=== PATIENT | male | born 1945 | race Caucasian/White ===

== ENCOUNTER 2018-11-02 16:49 | Inpatient (IN) | payer OTHER ==
[~2018-11-02] VITALS: Ht 172.7 cm; Wt 57.2 kg
--- NOTE | 2018-11-02 17:03 | NUR ---
EKG IN PROGRESS. LEFT SIDED WEAKNESS.
--- NOTE | 2018-11-02 17:30 | NUR ---
RECEIVED PATIENT FROM TRIAGE, PATIENT WHEELED TO ROOM 5, TWIN BROTHER AT BEDSIDE WHO STATES PATIENT HAS NOT BEEN EATING OR VOIDING X 2 DAYS, NOT ABLE TO TALK OR "DO HIS NON-STOP TALKING ABOUT HIS TIME AT [facility], SEEMS WEAK AND HE WAS SEEN BY PMD 3 WEEKS AGO AND WAS DX'D WITH UTI. HE WAS GIVEN ABX, PLUS CIPRO." PATIENT IS ALERT, AWAKE, NON-VERBAL, UNABLE TO FOLLOW COMMANDS, ABLE TO SHAKE HEAD FOR NO PAIN. EYES - AKIL. MUCUS - PINK, DRY. AFIB ON MONITOR WITH TM=082. LUNGS - CTA, PATIENT PUT ON 02 @ 2L NC. BS PRESENT X 4 QUADRANTS. B/L UPPER AND LOWER EXT PULSES PALPABLE. NAKUL GOFF INITIATED HEPLOCK ON LEFT FOREARM 22 GAUGE - INTACT, PATENT. WILL CONTINUE TO MONITOR//APR NAKUL
--- NOTE | 2018-11-02 17:45 | NUR ---
CARDIZEM ORDER CARRIED OUT, IVP AT [address] WILLIAM AT BEDSIDE, MADE AWARE NEW HR=89. NEW ORDER GIVEN AND CARRIED.//JUN RN
--- NOTE | 2018-11-02 17:59 | NUR ---
DIGOXIN ORDER CARRIED OUT, IVP GIVEN OVER 2 MINS, STRIPS PRINTED BEFORE AND AFTER.//APR RN
--- NOTE | 2018-11-02 18:00 | NUR ---
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
--- NOTE | 2018-11-02 19:10 | NUR ---
REPORT GIVEN TO NAKUL ONEIL FOR [facility].//APR RN
[2018-11-02 19:18] LABS: PLATELET COUNT 170 x10^3mcL (130-400)
[2018-11-02 19:19] LABS: BASOPHIL % 0 % (0-2); RED CELL DISTRIBUTION WIDTH 19.2 % (11.5-14.5)
[2018-11-02] MEDS ORDERED: DORZOLAMIDE HYD10 ML OU (19:29)
[2018-11-02] MEDS ORDERED: DORZOLAMIDE 2%10 ML OD (19:30)
[2018-11-02] MEDS ORDERED: DIGOXIN0.125 M1 PO (19:31)
[2018-11-02] MEDS ORDERED: ALPHAGAN P5 M1 OD (19:31)
[2018-11-02] MEDS ORDERED: CIPRO500 MG PO (19:31)
[2018-11-02 19:32] LABS: ALKALINE PHOSPHATASE 70 U/L (46-116); ALT/SGPT 48 U/L (16-63); AST/SGOT 20 U/L (15-37); BILIRUBIN TOTAL 0.5 mg/dL (0.20-1.00); CALCIUM 8.8 mg/dL (8.5-10.1); CARBON DIOXIDE 12.5 mmol/L (21-32); CHLORIDE SERUM 153 mmol/L (98-107); CREATININE SERUM 3.3 mg/dL (0.7-1.3); GLUCOSE SERUM 131 mg/dL (74-106); POTASSIUM SERUM 4.3 mmol/L (3.5-5.1); TOTAL PROTEIN, SERUM 7.8 g/dL (6.4-8.2)
[2018-11-02] MEDS ORDERED: ASPIR 8181 MG PO (19:32)
[2018-11-02 19:38] LABS: ALBUMIN 2.9 g/dL (3.4-5.0); SODIUM SERUM 185 mmol/L (136-145)
--- NOTE | 2018-11-02 20:12 | NUR ---
PER DR. WILLIAM, NO BLOOD CULTURES NEEDED.
--- NOTE | 2018-11-02 20:49 | NUR ---
GAVE REPORT TO NAKUL YADAV. UPDATES GIVEN, EARL ANSWERED.
--- NOTE | 2018-11-02 20:53 | NUR ---
PER SHADIA ALANIZ TO SEND PT TO TELE.
[2018-11-02 21:41] VITALS: BP 122/71
--- NOTE | 2018-11-02 21:56 | NUR ---
RECEIVED FROM ER, TRANSPORTED VIA [facility]. AWAKE, ALERT, ANSWERS INFREQUENTLY WITH SINGLE WORDS. NODS HEAD WHEN ASKED IF HE IS MILES. BREATHING EVEN AND UNLABORED, LUNG SOUNDS CLEAR. APPEARS THIN. WAS ABLE TO CALL PT'S BROTHER TYE WHO STATED PT HAS BEEN REFUSING TO EAT OR DRINK PAST FEW DAYS. PT HAS BEEN MORE WEAK THAN USUAL. SKIN ALTERATIONS PHOTODOCUTMENT, SEE ASSESSMENT. PLACED ON AIR MATTRESS. HOB ELEVATED 30 DEG. BED ALARM ON. INSTRUCTED ON USE OF CALL LIGHT TO CALL FOR ASSISTANCE, PLACED WITHIN EASY REACH, ENDORSED TO NURSE YADAV.
--- NOTE | 2018-11-02 22:30 | NUR ---
RESTING QUIETLY IN BED, NEW ADM. FROM ED. AWAKE/ALERT. NO VERBAL RESPONSE AT THIS TIME. AFEBRILE AND VITAL SIGNS STABLE. RESP. EVEN AND UNLABORED. 02 AT 2L/MIN VIA NC, NO ACUTE DISTRESS NOTED. HOB ELEVATED 30 DEGREE, PHIL. WELL. AFIB ON THE MONITOR, NO EVIDENCE OF ANY DISCOMFORT NOTED AT THIS TIME. STARTED ON IVF, LR AT 80ML/HR, INTACT AND INFUSING VIA LFA, SITE CLEAR. CALL LIGHT WITHIN REACH. WILL CONTINUE TO MONITOR.
--- NOTE | 2018-11-03 01:40 | NUR ---
RESTING QUIETLY IN BED WITH EYES CLOSED, APPEARS COMFORTABLE. EASILY AROUSABLE. IVF INTACT AND INFUSING WELL, SITE CLEAR. RESP. EVEN AND UNLABORED. NO ACUTE DISTRESS NOTED. CALL LIGHT WITHIN REACH. WILL CONTINUE TO MONITOR.
[2018-11-03 05:25] VITALS: BP 104/78
--- NOTE | 2018-11-03 06:23 | NUR ---
AFEBRILE AND VITAL SIGNS STABLE. RESP. EVEN AND UNLABORED. NO ACUTE DISTRESS NOTED. NO VERBAL RESPONSE NOTED. DUE MEDS GIVEN ORDERED, PHIL. WELL. IVF INTACT AND INFUSING WELL, SITE CLEAR. TURNED AND REPOSITIONED Q2HRS AND PRN. INCONT. OF URINE, CLEANED AND KEPT DRY. NO BM NOTED. NO SIGNS OF ANY DISCOMFORT NOTED. CALL LIGHT WITHIN REACH. WILL CONTINUE TO MONITOR.
[2018-11-03 06:50] LABS: PLATELET COUNT 149 x10^3mcL (130-400)
[2018-11-03 06:52] LABS: BASOPHIL % 0 % (0-2); RED CELL DISTRIBUTION WIDTH 18.8 % (11.5-14.5)
[2018-11-03 06:53] LABS: ALKALINE PHOSPHATASE 65 U/L (46-116); ALT/SGPT 40 U/L (16-63); AST/SGOT 16 U/L (15-37); BILIRUBIN TOTAL 0.44 mg/dL (0.20-1.00); CALCIUM 8.2 mg/dL (8.5-10.1); CARBON DIOXIDE 18.2 mmol/L (21-32); CHLORIDE SERUM 151 mmol/L (98-107); CREATININE SERUM 3.1 mg/dL (0.7-1.3); GLUCOSE SERUM 140 mg/dL (74-106); POTASSIUM SERUM 3.8 mmol/L (3.5-5.1); TOTAL PROTEIN, SERUM 7.3 g/dL (6.4-8.2)
[2018-11-03 07:11] LABS: ALBUMIN 2.6 g/dL (3.4-5.0); SODIUM SERUM 187 mmol/L (136-145)
--- NOTE | 2018-11-03 07:20 | NUR ---
RECEIEVED PT FROM NIGHT NURSE. PT IS LAYING DOWN IN BED WITH HOB UP RESTING. RESPIRATIONS EVEN AND UNLABORED ON 2L NC. PT LOOKS TO BE IN NO ACUTE DISTRESS AT THIS TIME. PT ON AIR MATTRESS. TELE MONITOR PRESENT. IV SITE PATENT WITH NO SIGNS OF ERYTHEMA OR SWELLING WITH IV FLUIDS INFUSING. BED IN LOWEST POSITION, CALL LIGHT WITHIN REACH. WILL CONTINUE TO MONITOR.
--- NOTE | 2018-11-03 08:53 | NUR ---
SCREEN FOR LOW BARBRA SCALE AT RISK PRESSURE ULCER INJURY PREVENTION INTERVENTIONS: -TURN AND REPOSITION PATIENT Q 2H OFFLOAD LEFT AND RIGHT HIPS -ASSESS AND MONITOR SKIN CONDITION DURING POSITION CHANGE -OFFLOAD BILATERAL HEELS BY PLACING PILLOWS UNDER CALVES AT ALL TIMES, UNLESS OTHERWISE CONTRAINDICATED -KEEP SKIN CLEAN AND DRY AT ALL TIMES. -APPLY OPTIFOAM TO SACRALCOCCYX PREVENTION
[2018-11-03 09:37] VITALS: BP 112/65
--- NOTE | 2018-11-03 11:00 | NUR ---
INFORMED DR. ALBA THAT 847 CC URINE FOUND IN BLADDER PER US RENAL/KIDNEY. PT ABD DISTENDED. PT INCONTINENT AND HAS HAD A FEW SMALL EPISODES OF URINATION. DR. ALBA RECOMMENDED TO INITIATE A BARAHONA CATHETER. WILL CARRY OUT ORDERED.
--- NOTE | 2018-11-03 12:45 | NUR ---
ATTEMPTED TO INITIATE BARAHONA CATHETER ORDERED. RESISTANCE FELT UPON INSERTION ABOUT 1/2-1 INCH INTO TIP OF PENIS. PT STATING FEELING PAIN AND BLOOD PRESENT ON BARAHONA CATHETER TIP. UNABLE TO INSERT BARAHONA CATHETER. WILL NOTIFY DR. ALBA.
[2018-11-03 13:26] VITALS: BP 114/71
--- NOTE | 2018-11-03 13:30 | NUR ---
PT TAKEN DOWN FOR CT. PT IV H/L. ACCOMPANIED BY NURSE.
--- NOTE | 2018-11-03 14:06 | NUR ---
PT RETURNED FROM CT. PT LOOKS TO BE IN NO ACUTE DISTRESS AT THIS TIME. IV SITE PATENT WITH NO SIGNS OF ERYTHEMA OR SWELLING. RESPIRATIONS EVEN AND UNLABORED ON ROOM AIR. BED IN LOWEST POSITION, CALL LIGHT WITHIN REACH. WILL CONTINUE TO MONITOR.
--- NOTE | 2018-11-03 14:27 | NUR ---
CALLED TO , INFORMED PATIENT'S US RENAL RESULT WITH DISTENDED BLADDER 847 ML, AND THE ABNORMAL LAB. RESULTS. MADE AWARE OF UNABLE TO INSERT BARAHONA CATHETER DUE TO RESISTANCE.
[2018-11-03 18:11] VITALS: BP 118/76
[2018-11-03 18:29] LABS: CALCIUM 7.3 mg/dL (8.5-10.1); CARBON DIOXIDE 19.3 mmol/L (21-32); CHLORIDE SERUM 148 mmol/L (98-107); CREATININE SERUM 2.8 mg/dL (0.7-1.3); GLUCOSE SERUM 174 mg/dL (74-106); POTASSIUM SERUM 3.7 mmol/L (3.5-5.1)
[2018-11-03 18:42] LABS: SODIUM SERUM 179 mmol/L (136-145)
--- NOTE | 2018-11-03 18:54 | NUR ---
PT IS LAYING DOWN IN BED WITH HOB UP RESTING. PT LOOKS TO BE IN NO ACUTE DISTRESS AT THIS TIME. RESPIRATIONS EVEN AND UNLABORED ON 2L NC. IV SITE PATENT WITH NO SIGNS OF ERYTHEMA OR SWELLING WITH IV FLUIDS INFUSING. BED IN LOWEST POSITION, CALL LIGHT WITHIN REACH. WILL ENDORSE TO ONCOMING SHIFT.
--- NOTE | 2018-11-03 19:47 | NUR ---
RECEIVED PT IN BED, RESTING QUIETLY. AWAKE AND ALERT. NON VERBAL. RESP. EVEN AND UNLABORED. LUNG SOUNDS CLEAR BILAT. 02 AT 2L/MIN VIA NC, SAT. WELL. NO ACUTE DISTRESS NOTED. AFIB ON THE MONITOR, NO EVIDENCE OF ANY DISCOMFORT NOTED AT THIS TIME. IVF, D5W AT 80ML/HR, INTACT AND INFUSING VIA LFA, SITE CLEAR. HS CARE DONE. ON AIR MATTRESS, TURNED AND REPOSITIONED. CALL LIGHT WITHIN REACH. WILL CONTINUE TO MONITOR.
[2018-11-03 20:51] VITALS: BP 111/69
[2018-11-03 22:41] LABS: CALCIUM 7.2 mg/dL (8.5-10.1); CARBON DIOXIDE 19.2 mmol/L (21-32); CHLORIDE SERUM 146 mmol/L (98-107); CREATININE SERUM 2.8 mg/dL (0.7-1.3); GLUCOSE SERUM 161 mg/dL (74-106); POTASSIUM SERUM 3.6 mmol/L (3.5-5.1)
[2018-11-03 23:08] LABS: SODIUM SERUM 176 mmol/L (136-145)
--- NOTE | 2018-11-03 23:30 | NUR ---
BARAHONA CATH INSERTED BY DR MCKINNEY. CONNECTED TO GRAVITY DRAINAGE. DRAINING YELLOW COLOR URINE . URINE SPECIMEN OBTAINED AND SENT TO LAB. KEPT COMFORTABLE.
[2018-11-04 00:10] LABS: UA SPECIFIC GRAVITY 1.015 (1.005-1.035); microscopic required? YES; urine erythrocyte 1+ (NEGATIVE)
--- NOTE | 2018-11-04 00:46 | NUR ---
AWAKE, VERBALY RESPONSIVE, REQUESTING FOOD, SANDWICH AND JUICE GIVEN. PHIL. WELL. WILL CONTINUE TO MONITOR.
--- NOTE | 2018-11-04 02:16 | NUR ---
RESTING QUIETLY WITH EYES CLOSED, APPEARS ASLEEP, EASILY AROUSABLE. RESP. EVEN AND UNLABORED. NO ACUTE DISTRESS NOTED. WILL CONTINUE TO MONITOR.
[2018-11-04 02:39] LABS: CHLORIDE SERUM 144 mmol/L (98-107); CREATININE SERUM 2.7 mg/dL (0.7-1.3); GLUCOSE SERUM 193 mg/dL (74-106); POTASSIUM SERUM 3.4 mmol/L (3.5-5.1)
[2018-11-04 02:41] LABS: SODIUM SERUM 175 mmol/L (136-145)
[2018-11-04 05:27] VITALS: BP 123/72
--- NOTE | 2018-11-04 06:03 | NUR ---
NO COMPLAINTS NOTED AT THIS TIME. REMAINS AFIB ON THE MONITOR, DENIES CP OR ANY DISCOMFORT AT THIS TIME. AFEBRILE AND VITAL SIGNS STABLE. DUE MEDS GIVEN ORDERED, PHIL. WELL. IVF INTACT AND INFUSING WELL, SITE CLEAR. TURNED AND REPOSITIONED Q2HRS AND PRN. BARAHONA CATH INTACT AND PATENT. CALL LIGHT WITHIN REACH. WILL CONTINUE TO MONITOR.
[2018-11-04 06:51] LABS: CALCIUM 7.3 mg/dL (8.5-10.1); CARBON DIOXIDE 18.7 mmol/L (21-32); CHLORIDE SERUM 142 mmol/L (98-107); CREATININE SERUM 2.6 mg/dL (0.7-1.3); GLUCOSE SERUM 140 mg/dL (74-106); POTASSIUM SERUM 3.5 mmol/L (3.5-5.1)
--- NOTE | 2018-11-04 07:45 | NUR ---
PATIENT IS AT SLEEP BUT AROUSABLE WITH VERBAL STIMULI. PATIENT SAID, "GOOD MORNING" TO THE STAFF WITH SLURRED SPEECH WHEN THE STAFF WAKES HIM UP AND GREETING,"GOOD MORNING" TO HIM. HOWEVER, PATIENT DISORIENTED AT THIS TIME AND DOES NOT SAY ANY MORE WORDS AFTERWARD. IVF D5W AT 100ML/HR VIA IV SITE AT [facility]. TELE # 12 READS AFIB AT THIS TIME. CALL LIGHT WITHIN REACH. SIDE RAILS UP X3. BED IS AT LOWEST POSITION. ALARM IS ON. ISOGEL MATTRESS IN USE.
--- NOTE | 2018-11-04 07:55 | NUR ---
DR. ALBA IN TO SEE THE PATIENT.
[2018-11-04 08:25] VITALS: BP 119/86
[2018-11-04 08:38] LABS: SODIUM SERUM 174 mmol/L (136-145)
[2018-11-04 12:00] VITALS: BP 135/75
--- NOTE | 2018-11-04 15:36 | NUR ---
THE PATIENT'S BROTHER, TYE HINOJOSA AND TYE'S ARE AT BEDSIDE TAKING THE PATIENT'S BELONGINGS HOME.
[2018-11-04 15:45] VITALS: Ht 172.7 cm; Wt 57.2 kg
[2018-11-04 16:21] VITALS: BP 104/59
--- NOTE | 2018-11-04 18:43 | NUR ---
TOTAL CARE PROVIDED TO THE PATIENT. PATIENT ON AND OFF SLEEPING. WHEN THE PATIENT IS AWAKE, PATIENT ORIENTED TO HIS NAME AND PLACE, AND ABLE TO ASK FOR SNACK.
--- NOTE | 2018-11-04 19:55 | NUR ---
RECEIVED AWAKE IN BED. ALERT BUT CONFUSED AND DISORIENTED . SKIN WARM AND DRY TO TOUCH WITH BLANCHABLE REDNESS ON THE COCCYX WITH OPTIFOAM, BLANCHABLE REDNESS TO BILATERAL ELBOWS, ON TELE # 12 STILL ON AFIB, PT DENIES ANY CHEST DISCOMFORT. ON 02 AT 2L/NC TO FACILITATE BREATHING. PLACED CALL LIGHT WITHIN REACH, INSTRUCTED TO CALL FOR ANY ASSISTANCE NEEDED AND VERBALIZED UNDERSTANDING.
[2018-11-04 21:03] VITALS: BP 132/72
--- NOTE | 2018-11-04 22:00 | NUR ---
CONTINUES ON ATB IVPB WITHOUT ADVERSE REACTION NOTED. BARAHONA CATH TO BSD WITH YELLOW URINE OUTPUT. NO HEMATURIA NOTED.
[2018-11-05 05:27] VITALS: BP 138/85
[2018-11-05 06:07] LABS: BASOPHIL % 0.1 % (0-2)
[2018-11-05 06:40] LABS: PLATELET COUNT 91 x10^3mcL (130-400); RED CELL DISTRIBUTION WIDTH 17.5 % (11.5-14.5)
[2018-11-05 06:42] LABS: ALKALINE PHOSPHATASE 54 U/L (46-116); ALT/SGPT 45 U/L (16-63); AST/SGOT 44 U/L (15-37); BILIRUBIN TOTAL 0.3 mg/dL (0.20-1.00); CALCIUM 7.3 mg/dL (8.5-10.1); CARBON DIOXIDE 18.4 mmol/L (21-32); CHLORIDE SERUM 127 mmol/L (98-107); CREATININE SERUM 1.9 mg/dL (0.7-1.3); GLUCOSE SERUM 122 mg/dL (74-106); POTASSIUM SERUM 3.7 mmol/L (3.5-5.1)
--- NOTE | 2018-11-05 07:05 | NUR ---
RECIEVED PT RESTING IN BED SITH NO S/S OF PAIN, DISTRESS, OR SOB. A/O X2. TELE #12 CONNECTED TO PT. BARAHONA CATHETER IN PLACE AND DRAINING YELLOW URINE. D5W RUNNING AT 100ML/HR TO LFA. IV INTACT AND PATENT WITH NO REDNESS OR INFLAMMATION NOTED. SAFETY PRECAUTIONS IN PLACE, CALL LIGHT WITHIN REACH, WILL MONIOTR.
[2018-11-05 08:06] LABS: SODIUM SERUM 159 mmol/L (136-145)
[2018-11-05 08:07] LABS: ALBUMIN 2.1 g/dL (3.4-5.0)
[2018-11-05 08:08] VITALS: BP 137/81
--- NOTE | 2018-11-05 11:00 | NUR ---
PT STABLE WITH NO S/S OF ANY DISTRESS. SAFETY PRECA IN PLACE, CALL LIGHT WITHIN REACH, WILL MONITOR.
[2018-11-05 11:55] VITALS: BP 140/86
--- NOTE | 2018-11-05 13:52 | NUR ---
PT TOLERATING ALL CARES WELL. NO DISTRESS NOTED. SAFETY PREC IN PLACE, CALL LIGHT WITHIN REACH, WILL MONITOR.
--- NOTE | 2018-11-05 15:00 | NUR ---
DR YANG AND DR EMMANUEL NOTIFIED OF PT SODIUM LEVEL OF 159.
[2018-11-05 15:27] LABS: CALCIUM 7.1 mg/dL (8.5-10.1); CHLORIDE SERUM 124 mmol/L (98-107); CREATININE SERUM 1.7 mg/dL (0.7-1.3); GLUCOSE SERUM 108 mg/dL (74-106); POTASSIUM SERUM 3.7 mmol/L (3.5-5.1); SODIUM SERUM 156 mmol/L (136-145)
--- NOTE | 2018-11-05 16:55 | NUR ---
DR EMMANUEL NOTIFIED OF PT BUN LEVEL TRENDING DOWN TO 64 TODAY.
[2018-11-05 16:59] VITALS: BP 140/90
--- NOTE | 2018-11-05 18:15 | NUR ---
PT STABLE AT THIS TIME RESTING IN BED WITH NO S/S OF ANY DISTRESS, PAIN, OR SOB. TELE#12 CONNECTED TO PT. BARAHONA CATHETER IN PLACE AND DRAINING YELLOW URINE. SKIN KEPT CDI. IV INTACT AND PATENT WITH NO REDNESS OR INFLAMMMATION, RUNNING 75ML/HR NS. SAFETY PRECAUTIONS IN PLACE, CALL LIGHT WITHIN REACH, WILL ENDORSE CARE TO NIGHT NURSE.
--- NOTE | 2018-11-05 20:08 | NUR ---
IN BED AWAKE ALERT VERBAL SLOW SPEECH COMPREHENSIVE, MARKED WEAKNESS, EQUAL DIRECTOR OF VIDEO ANALYTICS, NO FACIAL DROOPING, DENIES HEADACHE OR DIZZINESS, NO DISTRESS 2L 02/NC SATURATING 97% CTA, TELE #12 AFIB IN THE MONITOR HR @ 70'S NO CP OR PRESSURE F/C DRAINING FREELY YELLOW COLORED URINE OUTPUT, REPOSITIONED TO COMFORT, ABD SOFT NON TENDER BS ACTIVE, SHIFT ASSESSMENT DONE, CALL LIGHT AT REACH, CONT TO MONITOR.
[2018-11-05 21:45] VITALS: BP 135/97
--- NOTE | 2018-11-06 01:47 | NUR ---
ROCEPHIN IV DC'D AFTER 3 DOSES, IVF ALSO COMPLETED.
--- NOTE | 2018-11-06 03:26 | NUR ---
REPOSITIONED EVERY 2 HRS, LETHARGIC VERBAL WITH CONFUSION, DENIES PAIN, NO DISTRESS, PT WITH 02 @ 2L/MIN NC, IVF COMPLETED 1 BAG INFUSION AND DC'D PER MD'S ORDER, CONT TO MONITOR.
--- NOTE | 2018-11-06 05:21 | NUR ---
PT IS AWAKE, HAS LARGE BM SOFT X1, GOOD PERICARE RENDERED, PT DENIES PAIN NO DISTRESS, COOPERATIVE TO CAREGIVER, REPOSITIONED, CONT TO MONITOR.
[2018-11-06 06:37] VITALS: BP 138/81
--- NOTE | 2018-11-06 07:15 | NUR ---
RECEIVED PT FROM NOC RN. PT AA/OX1 (SELF), FORGETFUL/CONFUSED, REORIENTED TO PLACE/DAY/EVENT. SPEECH GARBLED AT TIMES. NO S/S OF ACUTE DISTRESS. DENIES PAIN AT THIS TIME. NO SOB ON 2LNC. BARAHONA IN TACT DRAINING TO GRAVITY, NO DEPENDENT LOOPS. IV WNL TO LFA, SALINE LOCKED. PT CALM/COOPERATIVE. FALL PRECAUTIONS IN PLACE, PT IN ROOM CLOSE TO NURSES STATION. SIDE RAILS UP X2. AIR MATTRESS IN PLACE. BED IN LOW POSITION. CALL LIGHT WITHIN REACH. INSTRUCTED TO USE CALL LIGHT TO CALL FOR ASSISTANCE PRN. VERBALIZED UNDERSTANDING. WILL CONTINUE TO MONITOR.
[2018-11-06 07:26] LABS: BASOPHIL % 0 % (0-2); PLATELET COUNT 82 x10^3mcL (130-400); RED CELL DISTRIBUTION WIDTH 16.9 % (11.5-14.5)
[2018-11-06 07:32] LABS: ALKALINE PHOSPHATASE 62 U/L (46-116); ALT/SGPT 44 U/L (16-63); AST/SGOT 45 U/L (15-37); BILIRUBIN DIRECT 0.09 mg/dL (0.0-0.2); BILIRUBIN TOTAL 0.43 mg/dL (0.20-1.00); CALCIUM 7.2 mg/dL (8.5-10.1); CARBON DIOXIDE 20.1 mmol/L (21-32); CHLORIDE SERUM 125 mmol/L (98-107); CREATININE SERUM 1.5 mg/dL (0.7-1.3); GLUCOSE SERUM 106 mg/dL (74-106); POTASSIUM SERUM 3.7 mmol/L (3.5-5.1); SODIUM SERUM 158 mmol/L (136-145); TOTAL PROTEIN, SERUM 6.6 g/dL (6.4-8.2)
[2018-11-06 07:33] LABS: ALBUMIN 2.1 g/dL (3.4-5.0)
[2018-11-06 08:22] VITALS: BP 136/88
--- NOTE | 2018-11-06 12:20 | NUR ---
PT LAYING IN BED RESTING WITH BOTH EYES CLOSED. EASILY AROUSABLE TO VERBAL STIMULI. AA/OX1 (SELF), SLOW RESPONSE NOTED. SPEECH CLEAR AT THIS TIME. NO S/S OF ACUTE DISTRESS. DENIES CHEST PAIN. NO SOB ON 2LNC. O2 SAT 96%. RR EVEN/UNLABORED. BARHAONA IN TACT DRAINING CLEAR/YELLOW URINE TO GRAVITY WITH NO DEPENDENT LOOPS. BLE ELEVATED WITH PILLOWS. AIR MATTRESS IN PLACE. BED IN LOW POSITION. CALL LIGHT WITHIN REACH. FALL PRECAUTIONS IN PLACE. AFIB ON TELE. WILL CONTINUE TO MONITOR.
[2018-11-06 12:21] VITALS: BP 122/86
--- NOTE | 2018-11-06 15:15 | NUR ---
DR. ALBA CALLED TO DISCUSS D/C PLANNING REGARDING ATB. RECEIVED ORDER FOR PT TO RECEIVE IVT ATB TX AT [facility] ROCE[facility] 1GM IVP DAILY X7 DAYS AND TO HAVE CHEM7 PANEL DRAWN DAILY X5 DAYS. SS MADE AWARE OF ORDER.
[2018-11-06 16:17] VITALS: BP 117/76
[2018-11-06 18:01] VITALS: BP 132/83
--- NOTE | 2018-11-06 18:20 | NUR ---
PT BEING DISCHARGED TO [facility] FOLLOWED BY DR. MATTHEW ANTHONY. REPORT CALLED TO [phone] TO NAKUL CIFUENTES.
--- NOTE | 2018-11-06 18:35 | NUR ---
PT BEING DISCHARGED TO [facility]. REPORT GIVEN TO NAKUL CIFUENTES. NO S/S OF ACUTE DISTRESS. BROTHER TYE AWARE OF TRANSFER AND AGREES TO TRANSFER TO [facility]. PT AA/OX1 LAYING IN BED. TOLERATED DINNER WELL. NO N/V. NO COMPLAINT OF PAIN. NO SOB ON ROOM AIR. NO CHEST PAIN. NO BYRNES. NO DIZZINESS. BARAHONA IN TACT DRAINING TO GRAVITY. AIR MATTRESS IN PLACE. VS STABLE. BLE ELEVATED. OPTIFOAM IN PLACE TO SACRUM, SEE CHART FOR DISCHARGE PICTURES. WAITING FOR TRANSPORT. BELONGINGS WITH PATIENT. WILL ENDORSE TO ONCOMING SHIFT.
--- NOTE | 2018-11-06 19:06 | NUR ---
PT TAKEN BY [facility] TRANSPORT BY [facility] [place] [facility] PT AA/OX1, FOLLOWS SIMPLE COMMANDS. NO SOB ON 2LNC. BARAHONA IN TACT. IV WNL TO LFA. SALINE LOCKED. BELONGINGS WITH PATIENT. SEE CHART FOR WOUND PICTURES. NO CHEST PAIN. AFIB ON TELE. TELE REMOVED. NO S/S OF ACUTE DISTRESS.
== END 2018-11-06 19:10 | DRG 871 ==
LOC: ED 16:49 → DU 19:23
PROVIDERS: Internal Medicine; Internal Medicine Nephrology; ADMIT Internal Medicine Pulmonary Disease
DX: A41.9 Sepsis, unspecified organism (principal); G93.41 Metabolic encephalopathy; N39.0 Urinary tract infection, site not specified; N17.9 Acute kidney failure, unspecified; E87.2 Acidosis; E87.0 Hyperosmolality and hypernatremia; Z68.1 Body mass index [BMI] 19.9 or less, adult; E86.1 Hypovolemia; E86.0 Dehydration; I48.0 Paroxysmal atrial fibrillation; G80.9 Cerebral palsy, unspecified; Z79.82 Long term (current) use of aspirin
CPT/HCPCS: 83880; G0378; J0696; J1160; J1644; J3490; J7030; J7040; J7070; J7120; Q0092

== ENCOUNTER 2019-01-18 13:35 | Emergency (ER) | payer OTHER ==
[~2019-01-18] VITALS: Ht 162.6 cm; Wt 59.0 kg
[~2019-01-18 13:35] MED LIST: ALPHAGAN P5 M1 OD; ASPIR 8181 MG PO; CIPRO500 MG PO; DIGOXIN0.125 M1 PO; DORZOLAMIDE 2%10 ML OD; DORZOLAMIDE HYD10 ML OU
[2019-01-18 14:05] VITALS: Ht 162.6 cm; Wt 59.0 kg
[2019-01-18 15:21] LABS: microscopic required? YES; urine erythrocyte 3+ (NEGATIVE)
[2019-01-18 15:57] VITALS: BP 91/53
== END 2019-01-18 15:57 | disposition home or self-care (01) ==
LOC: ED 13:35
PROVIDERS: Emergency Medicine
DX: R33.9 Retention of urine, unspecified (principal); N39.0 Urinary tract infection, site not specified; I10 Essential (primary) hypertension
CPT/HCPCS: J0696; J1885

== ENCOUNTER 2019-03-20 10:42 | Emergency (ER) | payer OTHER ==
[~2019-03-20] VITALS: Ht 167.6 cm; Wt 59.0 kg
[2019-03-20 10:52] VITALS: BP 158/89; Ht 167.6 cm; Wt 59.0 kg
[2019-03-20 14:35] LABS: UA SPECIFIC GRAVITY 1.015 (1.005-1.035); microscopic required? YES; urine erythrocyte TRACE (NEGATIVE)
== END 2019-03-20 14:21 | disposition home or self-care (01) ==
LOC: ED 10:42
PROVIDERS: Emergency Medicine
DX: N39.0 Urinary tract infection, site not specified (principal); R33.9 Retention of urine, unspecified; I10 Essential (primary) hypertension; G80.9 Cerebral palsy, unspecified

== ENCOUNTER 2019-04-25 19:22 | Emergency (ER) | payer OTHER ==
[~2019-04-25] VITALS: Ht 165.1 cm; Wt 59.0 kg
[2019-04-25 19:48] VITALS: Ht 165.1 cm; Wt 59.0 kg
[2019-04-25 21:03] LABS: BASOPHIL % 0.3 % (0-2); PLATELET COUNT 287 x10^3mcL (130-400)
[2019-04-25 21:05] LABS: RED CELL DISTRIBUTION WIDTH 18.4 % (11.5-14.5)
[2019-04-25 21:28] LABS: CALCIUM 9.1 mg/dL (8.5-10.1); CARBON DIOXIDE 25.1 mmol/L (21-32); CHLORIDE SERUM 99 mmol/L (98-107); CREATININE SERUM 0.9 mg/dL (0.7-1.3); GLUCOSE SERUM 127 mg/dL (74-106); POTASSIUM SERUM 3.9 mmol/L (3.5-5.1); SODIUM SERUM 135 mmol/L (136-145)
[2019-04-25 21:31] LABS: ALBUMIN 3.1 g/dL (3.4-5.0); ALKALINE PHOSPHATASE 85 U/L (46-116); ALT/SGPT 15 U/L (16-63); AST/SGOT 15 U/L (15-37); BILIRUBIN TOTAL 0.5 mg/dL (0.20-1.00); TOTAL PROTEIN, SERUM 7.8 g/dL (6.4-8.2)
[2019-04-25 22:42] LABS: microscopic required? YES; urine erythrocyte TRACE (NEGATIVE)
[2019-04-25 23:48] VITALS: BP 104/73
== END 2019-04-25 23:48 | disposition home or self-care (01) ==
LOC: ED 19:22
PROVIDERS: Emergency Medicine
DX: N39.0 Urinary tract infection, site not specified (principal); T83.018A Breakdown (mechanical) of other urinary catheter, initial encounter; I10 Essential (primary) hypertension; I48.91 Unspecified atrial fibrillation
CPT/HCPCS: J0696; J7060